=== PATIENT | male | born 1985 | race African-American/Black ===

== ENCOUNTER 2018-08-13 08:06 | Emergency (ER) | payer SELFPAY ==
--- NOTE | 2018-08-13 08:10 | EDM.PDOC ---
ED HPI GENERAL MEDICAL PROBLEM - General Stated Complaint: FLU Time Seen by Provider: 08/13/18 08:09 Source of Information: Reports: Patient - History of Present Illness INITIAL COMMENTS - FREE TEXT/NARRATIVE: HISTORY AND PHYSICAL: History of present illness: [Patient presents with nausea vomiting diarrhea some mild sore throat symptoms began last night Alert interactive no apparent distress however ill-appearing No vomiting while here in the emergency room he has complained of some abdominal pain however on exam it appears to be mild diffuse he rates 2 out of 10 nonradiating ] Review of systems: As per history of present illness and below otherwise all systems reviewed and negative. Past medical history: As per history of present illness and as reviewed below otherwise noncontributory. Surgical history: As per history of present illness and as reviewed below otherwise noncontributory. Social history: No reported history of drug or alcohol abuse. Family history: As per history of present illness and as reviewed below otherwise noncontributory. Physical exam: HEENT: Atraumatic, normocephalic, pupils reactive, negative for conjunctival pallor or scleral icterus, mucous membranes moist, throat clear, neck supple, nontender, trachea midline. Lungs: Clear to auscultation, breath sounds equal bilaterally, chest nontender. Heart: S1S2, regular, negative for clicks, rubs, or JVD. Abdomen: Soft, nondistended, nonfocal tenderness on deep palpation mild Negative for masses or hepatosplenomegaly. Negative for costovertebral tenderness. Pelvis: Stable nontender. Genitourinary: Deferred. Rectal: Deferred. Extremities: Atraumatic, negative for cords or calf pain. Neurovascular unremarkable. Neuro: Awake, alert, oriented. Cranial nerves II through XII unremarkable. Cerebellum unremarkable. Motor and sensory unremarkable throughout. Exam nonfocal. Diagnostics: [Strep/influenza cbC CMP UA CT abdomen pelvis with contrast Therapeutics: [Normal saline Toradol 30 mg IV Zofran 1 g Rocephin IV Amoxicillin Zofran ] Impression: Strep pharyngitis Gastroenteritis [Abdominal pain nausea vomiting diarrhea Secondaryto above ] Definitive disposition and diagnosis as appropriate pending reevaluation and review of above. Abdominal Pain Score (Numeric/FACES): 10 - Related Data Allergies Allergy/AdvReac Type Severity Reaction Status Date / Time No Known Allergies Allergy Verified 08/13/18 08:20 Home Meds: Home Meds . [No Known Home Meds] 08/13/18 [History] ED ROS GENERAL - Review of Systems Review Of Systems: See Below ED EXAM, GENERAL - Physical Exam Exam: See Below Course - Vital Signs Last Recorded V/S: Last Vital Signs Temp 96.5 F 08/13/18 08:16 Pulse 49 L 08/13/18 08:16 Resp 18 08/13/18 08:16 BP 126/53 L 08/13/18 08:16 Pulse Ox 98 08/13/18 08:16 - Orders/Labs/Meds Orders: Active Orders 24 hr Category Date Time Status DRUG SCREEN, URINE [URCHEM] Stat Lab 08/13/18 10:04 Received UA RFX URSZULA AND CULT IF INDIC [URIN] Stat Lab 08/13/18 10:04 Received Sodium Chloride 0.9% [Normal Saline] 1,000 ml Med 08/13/18 09:54 Active IV STAT Medication Orders Sodium Chloride (Normal Saline) 1,000 mls @ 999 mls/hr IV STAT ONE Stop: 08/13/18 10:54 Last Admin: 08/13/18 10:09 Dose: 999 mls/hr Labs: Laboratory Tests 08/13/18 08/13/18 Range/Units 08:47 08:47 WBC 10.09 (4.0-11.0) K/uL RBC 5.21 (4.50-5.90) M/uL Hgb 14.8 (13.0-17.0) g/dL Hct 44.0 (38.0-50.0) % MCV 84.5 (80.0-98.0) fL MCH 28.4 (27.0-32.0) pg MCHC 33.6 (31.0-37.0) g/dL RDW Std Deviation 43.8 (28.0-62.0) fl RDW Coeff of Aundrea 14 (11.0-15.0) % Plt Count 218 (150-400) K/uL MPV 10.80 (7.40-12.00) fL Neut % (Auto) 76.4 (48.0-80.0) % Lymph % (Auto) 16.4 (16.0-40.0) % Bertie % (Auto) 6.7 (0.0-15.0) % Eos % (Auto) 0.3 (0.0-7.0) % Baso % (Auto) 0.2 (0.0-1.5) % Neut # (Auto) 7.7 H (1.4-5.7) K/uL Lymph # (Auto) 1.7 (0.6-2.4) K/uL Bertie # (Auto) 0.7 (0.0-0.8) K/uL Eos # (Auto) 0.0 (0.0-0.7) K/uL Baso # (Auto) 0.0 (0.0-0.1) K/uL Nucleated RBC % 0.0 /100WBC Nucleated RBCs # 0 K/uL Sodium 142 (136-148) mmol/L Potassium 3.8 (3.5-5.1) mmol/L Chloride 105 (98-107) mmol/L Carbon Dioxide 28.6 (21.0-32.0) mmol/L BUN 16 (7.0-18.0) mg/dL Creatinine 0.9 (0.8-1.3) mg/dL Est Cr Clr Drug Dosing 104.69 mL/min Estimated GFR (MDRD) > 60.0 ml/min Glucose 126 H (74-106) mg/dL Calcium 9.4 (8.5-10.1) mg/dL Total Bilirubin 0.3 (0.2-1.0) mg/dL AST 26 (15-37) IU/L ALT 27 (14-63) IU/L Alkaline Phosphatase 96 (46-116) U/L Total Protein 7.3 (6.4-8.2) g/dL Albumin 3.9 (3.4-5.0) g/dL Globulin 3.4 (2.6-4.0) g/dL Albumin/Globulin Ratio 1.1 (0.9-1.6) Lipase 127 (73-393) U/L Meds: Medications Generic Name Dose Route Start Last Admin Trade Name Freq PRN Reason Stop Dose Admin Sodium Chloride 1,000 mls @ 999 mls/hr 08/13/18 09:54 08/13/18 10:09 Normal Saline IV 08/13/18 10:54 999 mls/hr STAT ONE Administration Discontinued Medications Generic Name Dose Route Start Last Admin Trade Name Freq PRN Reason Stop Dose Admin Sodium Chloride 1,000 mls @ 999 mls/hr 08/13/18 08:18 08/13/18 08:55 Normal Saline IV 08/13/18 09:18 999 mls/hr STAT ONE Administration Ceftriaxone Sodium/Dextrose 1 50 mls @ 100 mls/hr 08/13/18 09:54 08/13/18 10: 11 gm/ Premix IV 08/13/18 10:23 100 mls/hr ONETIME ONE Administration Ketorolac Tromethamine 30 mg 08/13/18 08:48 08/13/18 08:58 Toradol IVPUSH 08/13/18 08:49 30 mg ONETIME ONE Administration Ondansetron HCl 8 mg 08/13/18 08:18 08/13/18 08:55 Zofran IVPUSH 08/13/18 08:19 8 mg ONETIME ONE Administration Departure - Departure Time of Disposition: 10:28 Disposition: Home, Self-Care 01 Condition: Good Clinical Impression: Strep pharyngitis, Gastroenteritis - Discharge Information Referrals: PCP,None [Primary Care Provider] - Additional Instructions: The following information is given to patients seen in the emergency department who are being discharged to home. This information is to outline your options for follow-up care. We provide all patients seen in our emergency department with a follow-up referral. The need for follow-up, as well as the timing and circumstances, are variable depending upon the specifics of your emergency department visit. If you don't have a primary care physician on staff, we will provide you with a referral. We always advise you to contact your personal physician following an emergency department visit to inform them of the circumstance of the visit and for follow-up with them and/or the need for any referrals to a consulting specialist. The emergency department will also refer you to a specialist when appropriate. This referral assures that you have the opportunity for follow-up care with a specialist. All of these measure are taken in an effort to provide you with optimal care, which includes your follow-up. Under all circumstances we always encourage you to contact your private physician who remains a resource for coordinating your care. When calling for follow-up care, please make the office aware that this follow-up is from your recent emergency room visit. If for any reason you are refused follow-up, please contact the [facility] emergency department at and asked to speak to the emergency department charge nurse. - My Orders Last 24 Hours: My Active Orders 08/13/18 09:54 Sodium Chloride 0.9% [Normal Saline] 1,000 ml IV STAT 08/13/18 10:04 DRUG SCREEN, URINE [URCHEM] Stat UA RFX URSZULA AND CULT IF INDIC [URIN] Stat - Assessment/Plan Last 24 Hours: My Active Orders 08/13/18 09:54 Sodium Chloride 0.9% [Normal Saline] 1,000 ml IV STAT 08/13/18 10:04 DRUG SCREEN, URINE [URCHEM] Stat UA RFX URSZULA AND CULT IF INDIC [URIN] Stat
[2018-08-13] MEDS ORDERED: Sodium Chloride 0.9% 1,000 ML IV ONE ×2 (08:18→09:54)
[2018-08-13] MEDS ORDERED: Ondansetron 4 MG/2 ML SDV IVPUSH ONE (08:18)
[2018-08-13] MEDS ORDERED: Ketorolac 30 MG/ML SDV IVPUSH ONE (08:48)
[2018-08-13 09:34] LABS: CHLORIDE,CL 105 mmol/L (98-107); SODIUM,NA 142 mmol/L (136-148)
--- NOTE | 2018-08-13 09:36 | CR ---
EXAMINATION: Abdomen HISTORY: Pain COMPARISON: None TECHNIQUE: AP and upright views FINDINGS: There is no free air under the diaphragm. There is a nonobstructive bowel gas pattern. Likely a pelvic labral left along the left aspect of the pelvis. No organomegaly or otherwise no abnormal calcifications. Visualized osseous structures appear normal. IMPRESSION: No acute findings noted within the abdomen.
[2018-08-13] MEDS ORDERED: cefTRIAXone 1 GM in Premix Bag 1 BAG IV ONE (09:54)
[2018-08-13] MEDS ORDERED: Alum Hydrox/Mag Hydrox/Simeth 15 ML, Metoclopramide 5 MG, Lidocaine 2% 5 ML PO ONE ×3 (11:00)
[2018-08-13] MEDS ORDERED: Pantoprazole 40 MG Vial IVPUSH ONE (11:00)
== END 2018-08-13 13:12 | disposition home or self-care (01) ==
LOC: MW.ED 08:06
DX: K52.9 Noninfective gastroenteritis and colitis, unspecified (principal); J02.0 Streptococcal pharyngitis
CPT/HCPCS: 36415; 74019; 80053; 80305; 81003; 83690; 85025; 87804; 87880; 96361; 96365; 96375; 99284; A9270; C9113; J0696; J1885; J2405; J7040

== ENCOUNTER 2018-11-21 13:34 | Emergency (ER) | payer SELFPAY ==
[2018-11-21] MEDS ORDERED: Ondansetron 4 MG/2 ML SDV IVPUSH ONE (13:35)
[2018-11-21] MEDS ORDERED: Sodium Chloride 0.9% 1,000 ML IV ONE ×2 (13:35→15:03)
[2018-11-21] MEDS ORDERED: Ketorolac 30 MG/ML SDV IVPUSH ONE (13:35)
--- NOTE | 2018-11-21 13:41 | EDM.PDOC ---
ED HPI GENERAL MEDICAL PROBLEM - General Chief Complaint: Abdominal Pain Stated Complaint: STOMACH PAIN Time Seen by Provider: 11/21/18 13:35 Source of Information: Reports: Patient History Limitations: Reports: No Limitations - History of Present Illness INITIAL COMMENTS - FREE TEXT/NARRATIVE: HISTORY AND PHYSICAL: History of present illness: Patient is a 33-year-old male who presents to the emergency room with complaints of generalized abdominal pain, nausea, vomiting and diarrhea since Friday. He states he was at a friend's house on Friday and they had made a bunch of food that evening, shortly after eating started to develop symptoms. He states that the symptoms have been intermittent but have not fully subsided. Diarrhea resolved yesterday. He denies any testicular pain, erythema or soft tissue swelling. Patient denies any fever, chills, headache, change in vision, syncope or near syncope. Denies any chest pain, back pain, shortness of breath or cough. Denies any constipation or dysuria. Has not noted any blood in urine or stool. Denies any alcohol or drug abuse. Review of systems: As per history of present illness and below otherwise all systems reviewed and negative. Past medical history: As per history of present illness and as reviewed below otherwise noncontributory. Surgical history: As per history of present illness and as reviewed below otherwise noncontributory. Social history: See social history for further information Family history: As per history of present illness and as reviewed below otherwise noncontributory. Physical exam: General: Well-developed and well-nourished 33-year-old -[place] male. Alert and oriented. Nontoxic appearing and in no acute distress. HEENT: Atraumatic, normocephalic, pupils equal and reactive bilaterally, negative for conjunctival pallor or scleral icterus, mucous membranes moist, trachea midline. No drooling or trismus noted. No meningeal signs. No hot potato voice noted. Lungs: Clear to auscultation, breath sounds equal bilaterally, chest nontender. Heart: S1S2, regular rate and rhythm without overt murmur Abdomen: Soft, nondistended, nonspecific tenderness throughout all 4 quadrants. Negative for masses or hepatosplenomegaly. Negative for costovertebral tenderness. Pelvis: Stable nontender. Genitourinary: Deferred. Rectal: Deferred. Skin: Intact, warm, dry. No lesions or rashes noted. Extremities: Atraumatic, moves all extremities per self without difficulty or deficits, negative for cords or calf pain. Neurovascular unremarkable. Neuro: Awake, alert, oriented. Cranial nerves II through XII unremarkable. Cerebellum unremarkable. Motor and sensory unremarkable throughout. Exam nonfocal. Notes: Lab work is unremarkable. CT shows no acute findings. Vital signs remain stable. Patient did find improvement with the IV fluids and medications. Patient unable to give a stool sample during his ER visit. Supportive care measures were reviewed and discussed. Voices understanding and is agreeable to plan of care. Denies any further questions or concerns at this time. Diagnostics: CBC, CMP, lipase, UA, CT abdomen and pelvis, Therapeutics: IV fluid, Zofran, Toradol, Pepcid Prescription: Zofran Impression: Abdominal pain Gastroenteritis Plan: 1. Trimble diet over the next 24-48 hours. Advance diet as able. 2. Small frequent sips of fluids to prevent dehydration. You may use the Zofran as directed and as needed. 3. Follow-up with your primary care provider as we discussed. Return to the ED as needed and as discussed. Definitive disposition and diagnosis as appropriate pending reevaluation and review of above. abd Pain Score (Numeric/FACES): 10 - Related Data Allergies Allergy/AdvReac Type Severity Reaction Status Date / Time No Known Allergies Allergy Verified 11/21/18 13:43 Home Meds: Home Meds Ondansetron [Zofran ODT] 4 mg PO Q6H PRN #6 tab.dis 11/21/18 [Rx] Past Medical History - Past Health History Medical/Surgical History: Denies Medical/Surgical History Social & Family History - Family History Family Medical History: Noncontributory ED ROS GENERAL - Review of Systems Review Of Systems: ROS reveals no pertinent complaints other than HPI. ED EXAM, GI/ABD - Physical Exam Exam: See Below (See dictation) Course - Vital Signs Last Recorded V/S: Last Vital Signs Temp 97.3 F 11/21/18 13:44 Pulse 51 L 11/21/18 13:44 Resp 16 11/21/18 13:44 BP 174/124 H 11/21/18 13:44 Pulse Ox 100 11/21/18 13:44 - Orders/Labs/Meds Orders: Active Orders 24 hr Category Date Time Status Sodium Chloride 0.9% [Normal Saline] 1,000 ml Med 11/21/18 15:03 Active IV STAT Medication Orders Sodium Chloride (Normal Saline) 1,000 mls @ 125 mls/hr IV STAT ONE Stop: 11/21/18 23:02 Last Admin: 11/21/18 15:14 Dose: 125 mls/hr Labs: Laboratory Tests 11/21/18 11/21/18 11/21/18 Range/Units 13:35 14:35 14:35 WBC 9.18 (4.0-11.0) K/uL RBC 5.21 (4.50-5.90) M/uL Hgb 14.7 (13.0-17.0) g/dL Hct 44.2 (38.0-50.0) % MCV 84.8 (80.0-98.0) fL MCH 28.2 (27.0-32.0) pg MCHC 33.3 (31.0-37.0) g/dL RDW Std Deviation 43.3 (28.0-62.0) fl RDW Coeff of Aundrea 14 (11.0-15.0) % Plt Count 189 (150-400) K/uL MPV 10.90 (7.40-12.00) fL Neut % (Auto) 69.1 (48.0-80.0) % Lymph % (Auto) 23.5 (16.0-40.0) % Warrick % (Auto) 6.8 (0.0-15.0) % Eos % (Auto) 0.3 (0.0-7.0) % Baso % (Auto) 0.3 (0.0-1.5) % Neut # (Auto) 6.3 H (1.4-5.7) K/uL Lymph # (Auto) 2.2 (0.6-2.4) K/uL Warrick # (Auto) 0.6 (0.0-0.8) K/uL Eos # (Auto) 0.0 (0.0-0.7) K/uL Baso # (Auto) 0.0 (0.0-0.1) K/uL Nucleated RBC % 0.0 /100WBC Nucleated RBCs # 0 K/uL Sodium 141 (136-148) mmol/L Potassium 3.5 (3.5-5.1) mmol/L Chloride 106 (98-107) mmol/L Carbon Dioxide 24.5 (21.0-32.0) mmol/L BUN 19 H (7.0-18.0) mg/dL Creatinine 1.0 (0.8-1.3) mg/dL Est Cr Clr Drug Dosing 93.49 mL/min Estimated GFR (MDRD) > 60.0 ml/min Glucose 99 (74-106) mg/dL Calcium 9.0 (8.5-10.1) mg/dL Total Bilirubin 0.6 (0.2-1.0) mg/dL AST 25 (15-37) IU/L ALT 29 (14-63) IU/L Alkaline Phosphatase 71 (46-116) U/L Total Protein 6.4 (6.4-8.2) g/dL Albumin 3.7 (3.4-5.0) g/dL Globulin 2.7 (2.6-4.0) g/dL Albumin/Globulin Ratio 1.4 (0.9-1.6) Lipase 138 (73-393) U/L Urine Color YELLOW Urine Appearance CLEAR Urine pH 7.0 (5.0-8.0) Ur Specific [place] 1.015 (1.001-1.035) Urine Protein NEGATIVE (NEGATIVE) mg/dL Urine Glucose (UA) NEGATIVE (NEGATIVE) mg/dL Urine Ketones NEGATIVE (NEGATIVE) mg/dL Urine Occult Blood NEGATIVE (NEGATIVE) Urine Nitrite NEGATIVE (NEGATIVE) Urine Bilirubin NEGATIVE (NEGATIVE) Urine Urobilinogen 0.2 (<2.0) EU/dL Ur Leukocyte Esterase NEGATIVE (NEGATIVE) Meds: Medications Generic Name Dose Route Start Last Admin Trade Name Freq PRN Reason Stop Dose Admin Sodium Chloride 1,000 mls @ 125 mls/hr 11/21/18 15:03 11/21/18 15:14 Normal Saline IV 11/21/18 23:02 125 mls/hr STAT ONE Administration Discontinued Medications Generic Name Dose Route Start Last Admin Trade Name Freq PRN Reason Stop Dose Admin Famotidine 20 mg 11/21/18 15:03 11/21/18 15:14 Pepcid IVPUSH 11/21/18 15:04 20 mg ONETIME ONE Administration Sodium Chloride 1,000 mls @ 999 mls/hr 11/21/18 13:35 11/21/18 13:53 Normal Saline IV 11/21/18 14:35 999 mls/hr STAT ONE Administration Iopamidol 80 ml 11/21/18 16:30 11/21/18 16:31 Isovue Multipack-370 (76%) IVPUSH 11/21/18 16:31 80 ml ONETIME STA Administration Ketorolac Tromethamine 30 mg 11/21/18 13:35 11/21/18 13:54 Toradol IVPUSH 11/21/18 13:36 30 mg ONETIME ONE Administration Ondansetron HCl 4 mg 11/21/18 13:35 11/21/18 13:54 Zofran IVPUSH 11/21/18 13:36 4 mg ONETIME ONE Administration Departure - Departure Time of Disposition: 16:32 Disposition: Home, Self-Care 01 Clinical Impression: Gastroenteritis Abdominal pain Qualifiers: Abdominal location: generalized Qualified Code(s): R10.84 - Generalized abdominal pain - Discharge Information Prescriptions: Ondansetron [Zofran ODT] 4 mg PO Q6H PRN #6 tab.dis PRN Reason: Nausea Instructions: Viral Gastroenteritis, Adult, [id number], Abdominal Pain, Adult , [id number] Referrals: PCP,None [Primary Care Provider] - Forms: ED Department Discharge Additional Instructions: The following information is given to patients seen in the emergency department who are being discharged to home. This information is to outline your options for follow-up care. We provide all patients seen in our emergency department with a follow-up referral. The need for follow-up, as well as the timing and circumstances, are variable depending upon the specifics of your emergency department visit. If you don't have a primary care physician on staff, we will provide you with a referral. We always advise you to contact your personal physician following an emergency department visit to inform them of the circumstance of the visit and for follow-up with them and/or the need for any referrals to a consulting specialist. The emergency department will also refer you to a specialist when appropriate. This referral assures that you have the opportunity for follow-up care with a specialist. All of these measure are taken in an effort to provide you with optimal care, which includes your follow-up. Under all circumstances we always encourage you to contact your private physician who remains a resource for coordinating your care. When calling for follow-up care, please make the office aware that this follow-up is from your recent emergency room visit. If for any reason you are refused follow-up, please contact the [facility] Emergency Department at and asked to speak to the emergency department charge nurse. [facility] [address] [place] [address] [facility] [address] [place] [id number] 1. Trimble diet over the next 24-48 hours. Advance diet as able. 2. Small frequent sips of fluids to prevent dehydration. He may use the Zofran as directed and as needed. 3. Follow-up with your primary care provider as we discussed. Return to the ED as needed and as discussed. - My Orders Last 24 Hours: My Active Orders 11/21/18 15:03 Sodium Chloride 0.9% [Normal Saline] 1,000 ml IV STAT - Assessment/Plan Last 24 Hours: My Active Orders 11/21/18 15:03 Sodium Chloride 0.9% [Normal Saline] 1,000 ml IV STAT
[2018-11-21] MEDS ORDERED: Famotidine 20 MG/2 ML SDV IVPUSH ONE (15:03)
[2018-11-21 15:06] LABS: CHLORIDE,CL 106 mmol/L (98-107); SODIUM,NA 141 mmol/L (136-148)
[2018-11-21] MEDS ORDERED: Iopamidol 755 MG/ML 500 ML Multipack Bottle IVPUSH STA (16:30)
--- NOTE | 2018-11-21 16:32 | CT ---
INDICATION: Generalized abdominal pain. Nausea, vomiting and diarrhea. TECHNIQUE: Multiple axial images were obtained from the diaphragm to the symphysis pubis after administration of 80 mL of Isovue-370 intravenously. Sagittal and coronal re-formatted images were obtained. COMPARISON: None. FINDINGS: The visualized portion of the lung bases are clear. There is no focal liver lesion. The spleen, pancreas, gallbladder and adrenal glands are unremarkable. There is no mass or hydronephrosis seen in the kidneys. There is no evidence of a bowel obstruction. The abdominal aorta normal in caliber. There is no adenopathy seen. IMPRESSION: No acute abnormality seen on CT scan abdomen and pelvis with contrast. Dictated by Myke Edmond MD @ 11/21/2018 4:30:13 PM Please note that all CT scans at this facility use dose modulation, iterative reconstruction, and/or weight-based dosing when appropriate to reduce radiation dose to as low as reasonably achievable. Dictated by: Myke Edmond MD @ 11/21/2018 16:30:27 (Electronically Signed)
== END 2018-11-21 16:48 | disposition home or self-care (01) ==
LOC: MW.ED 13:34
DX: K52.9 Noninfective gastroenteritis and colitis, unspecified (principal)
CPT/HCPCS: 36415; 74177; 80053; 81003; 83690; 85025; 96361; 96374; 96375; 99284; J1885; J2405; J3490; J7040; Q9967

== ENCOUNTER 2020-02-22 01:42 | Emergency (ER) | payer SELFPAY ==
--- NOTE | 2020-02-22 01:53 | EDM.PDOC ---
ED HPI GENERAL MEDICAL PROBLEM - General Chief Complaint: General Stated Complaint: MEDICAL CLEARANCE Time Seen by Provider: 02/22/20 01:47 - History of Present Illness INITIAL COMMENTS - FREE TEXT/NARRATIVE: 34-year-old male presents in police custody for medical clearance. The patient states that he does not have anything wrong with him he just refused to answer their questions other to come here. He denies any medical problems or any medical complaint at this time. - Related Data Allergies Allergy/AdvReac Type Severity Reaction Status Date / Time No Known Allergies Allergy Verified 02/22/20 01:52 Home Meds: Home Meds . [No Known Home Meds] 02/22/20 [History] Past Medical History - Past Health History Medical/Surgical History: Denies Medical/Surgical History - Infectious Disease History Infectious Disease History: Reports: Chicken Pox - Past Surgical History Other Respiratory Surgeries/Procedures: spontaneous pneumothorax Social & Family History - Family History Family Medical History: Noncontributory ED ROS GENERAL - Review of Systems Review Of Systems: See Below Free Text/Narrative/Comment: He denies any active medical symptom ED EXAM, GENERAL - Physical Exam Exam: See Below Free Text/Narrative:: General Appearance: No acute distress, appears comfortable HEENT: Normocephalic/atraumatic, sclera anicteric, mucous membranes moist Neck: Normal range of motion Chest and Lungs: Bilateral breath sounds, clear to auscultation Cardiovascular: Regular rate and rhythm, no murmur Back: Normal Musculoskeletal: No edema or tenderness Neurologic: Awake, alert, no obvious deficits, moving all extremities Psychiatric: Appropriate, cooperative Course - Vital Signs Last Recorded V/S: Last Vital Signs Temp 97.2 F 02/22/20 01:50 Pulse 79 02/22/20 01:50 Resp 18 02/22/20 01:50 BP 117/80 02/22/20 01:50 Pulse Ox 100 02/22/20 01:50 Departure - Departure Time of Disposition: 01:52 Disposition: Home, Self-Care 01 Condition: Good Clinical Impression: Medical clearance for incarceration - Discharge Information *PRESCRIPTION DRUG MONITORING PROGRAM REVIEWED*: Not Applicable *COPY OF PRESCRIPTION DRUG MONITORING REPORT IN PATIENT BRITTANY: Not Applicable Referrals: PCP,None [Primary Care Provider] - Forms: ED Department Discharge Additional Instructions: The following information is given to patients seen in the emergency department who are being discharged to home. This information is to outline your options for follow-up care. We provide all patients seen in our emergency department with a follow-up referral. The need for follow-up, as well as the timing and circumstances, are variable depending upon the specifics of your emergency department visit. If you don't have a primary care physician on staff, we will provide you with a referral. We always advise you to contact your personal physician following an emergency department visit to inform them of the circumstance of the visit and for follow-up with them and/or the need for any referrals to a consulting specialist. The emergency department will also refer you to a specialist when appropriate. This referral assures that you have the opportunity for follow-up care with a specialist. All of these measure are taken in an effort to provide you with optimal care, which includes your follow-up. Under all circumstances we always encourage you to contact your private physician who remains a resource for coordinating your care. When calling for follow-up care, please make the office aware that this follow-up is from your recent emergency room visit. If for any reason you are refused follow-up, please contact the [facility] Emergency Department at and asked to speak to the emergency department charge nurse. Sepsis Event Note (ED) - Focused Exam Vital Signs: Vital Signs Temp Pulse Resp BP Pulse Ox 02/22/20 01:50 97.2 F 79 18 117/80 100 - Assessment/Plan Assessment:: 34-year-old male who denies any active problem or issue denies any complaint presents his medical clearance no findings of acute medical process by history or exam. Patient cleared for incarceration.
== END 2020-02-22 02:15 ==
LOC: MW.ED 01:42
DX: Z02.89 Encounter for other administrative examinations (principal)
CPT/HCPCS: 99282; 99283

== ENCOUNTER 2022-01-21 02:44 | Emergency (ER) | payer SELFPAY ==
[2022-01-21] MEDS ORDERED: Ibuprofen 600 MG Tab PO ONE (03:38)
[2022-01-21] MEDS ORDERED: traMADol 50 MG Tab PO ONE (03:38)
== END 2022-01-21 05:22 | disposition home or self-care (01) ==
LOC: MW.ED 02:44
DX: S42.141A Displaced fracture of glenoid cavity of scapula, right shoulder, initial encounter for closed fracture (principal); W18.30XA Fall on same level, unspecified, initial encounter; Y93.67 Activity, basketball
CPT/HCPCS: 73030; 73200; 99284; A9270

== ENCOUNTER 2022-04-17 13:42 | Emergency (ER) | payer BC, MEDICAID ==
[2022-04-17] MEDS ORDERED: Lidocaine 1% PF 2 ML SDV INJECT ONE (14:11)
== END 2022-04-17 14:48 | disposition home or self-care (01) ==
LOC: MW.ED 13:42
DX: L03.313 Cellulitis of chest wall (principal); L02.213 Cutaneous abscess of chest wall; Z79.899 Other long term (current) drug therapy
CPT/HCPCS: 10060; 99282-25

== ENCOUNTER 2022-04-19 12:29 | Emergency (ER) | payer MEDICAID | END 2022-04-19 15:35 | disposition home or self-care (01) | LOC: MW.ED 12:29 | DX: L02.411 Cutaneous abscess of right axilla (principal) | CPT/HCPCS: 99282 ==

== ENCOUNTER 2022-07-17 08:06 | Emergency (ER) | payer MEDICAID ==
[2022-07-17] MEDS ORDERED: Sodium Chloride 0.9% 20 ML SDV IV PRN (08:20)
[2022-07-17] MEDS ORDERED: Sodium Chloride 0.9% 10 ML Syringe FLUSH PRN (08:20)
[2022-07-17] MEDS ORDERED: Sodium Chloride 0.9% 2.5 ML Syringe FLUSH PRN (08:20)
[2022-07-17] MEDS ORDERED: Ondansetron 4 MG/2 ML SDV IVPUSH ONE ×2 (08:21→10:59)
[2022-07-17] MEDS ORDERED: Sodium Chloride 0.9% 1,000 ML IV ONE (08:21)
[2022-07-17 09:06] LABS: CARBON DIOXIDE,CO2 29.4 mmol/L (21.0-32.0); POTASSIUM,K 2.9 mmol/L (3.5-5.1)
[2022-07-17 09:41] LABS: CORONAVIRUS COVID-19 NAA NEGATIVE (NEGATIVE); INFLUENZA A NAA NEGATIVE (NEGATIVE); INFLUENZA B NAA NEGATIVE (NEGATIVE); RESPIRATORY SYNCYTIAL VIR NAA NEGATIVE (NEGATIVE)
[2022-07-17] MEDS ORDERED: Morphine 4 MG/ML Syringe IVPUSH ONE (11:00)
[2022-07-17] MEDS ORDERED: Iopamidol 755 MG/ML 500 ML Multipack Bottle IVPUSH STA (11:19)
[2022-07-17] MEDS ORDERED: Potassium Bicarbonate 25 MEQ Tab.EFF PO STA (12:12)
[2022-07-17] MEDS ORDERED: Sodium Chloride 0.9% 250 ML IV ONE (12:30)
[2022-07-17] MEDS ORDERED: Potassium Chloride 20 MEQ in Premix Bag 1 BAG IV ONE (12:30)
[2022-07-17] MEDS ORDERED: NS + KCl 20mEq/L 1,000 ML IV SCH (13:00)
[2022-07-17] MEDS ORDERED: Potassium Chloride 20 MEQ Tab.ER PO ONE (13:22)
[2022-07-17] MEDS ORDERED: Metoclopramide 10 MG/2 ML SDV IVPUSH ONE (14:13)
== END 2022-07-17 16:33 | disposition home or self-care (01) ==
LOC: MW.ED 08:06
DX: A08.4 Viral intestinal infection, unspecified (principal); Z20.822 Contact with and (suspected) exposure to COVID-19
CPT/HCPCS: 0241U; 36415; 74177; 80053; 83690; 85025; 93005; 96361; 96365; 96366; 96375; 96376; 99284; A9270; J2270; J2405; J2765; J3480; J3490; J7030; J7050; Q9967

== ENCOUNTER 2023-02-24 10:07 | Emergency (ER) | payer SELFPAY ==
[2023-02-24] MEDS ORDERED: Lidocaine 1% 5 ML VIAL INJECT ONE (10:33)
== END 2023-02-24 11:13 | disposition home or self-care (01) ==
LOC: MW.ED 10:07
DX: L02.413 Cutaneous abscess of right upper limb (principal)
CPT/HCPCS: 10060; 99282; 99283; J3490

== ENCOUNTER 2023-12-18 10:41 | Emergency (ER) | payer SELFPAY ==
[2023-12-18] MEDS: Sodium Chloride 0.9% 1,000 ML IV ONE (11:17)
[2023-12-18] MEDS: Ondansetron 4 MG/2 ML SDV IVPUSH ONE (11:17)
[2023-12-18 11:22] LABS: BASOPHILS ABSOLUTE AUTO 0.03 K/uL (0.00-0.20); BASOPHILS PERCENT AUTO 0.3 % (0.0-1.0); EOSINOPHILS ABSOLUTE AUTO 0.01 K/uL (0.00-0.45); EOSINOPHILS PERCENT AUTO 0.1 % (0.0-6.0); HEMATOCRIT 45.6 % (42.0-52.0); HEMOGLOBIN 15.3 g/dL (14.0-18.0); IMMATURE GRAN ABSOLUTE AUTO 0.03 K/uL (0.00-0.05); IMMATURE GRAN PERCENT AUTO 0.3 % (0.0-0.4); LYMPHOCYTES ABSOLUTE AUTO 1.86 K/uL (1.00-4.80); LYMPHOCYTES PERCENT AUTO 21.5 % (24.0-44.0); MEAN CORPUSCULAR HEMOGLOBIN 27.3 pg (28.0-32.0); MEAN CORPUSCULAR HGB CONC 33.6 g/dL (32.0-36.0); MEAN CORPUSCULAR VOLUME 81.4 fL (83.0-99.0); MEAN PLATELET VOLUME 11.1 fL (9.4-12.4); MONOCYTES ABSOLUTE AUTO 0.63 K/uL (0.00-0.80); MONOCYTES PERCENT AUTO 7.3 % (0.0-8.0); NEUTROPHILS ABSOLUTE AUTO 6.08 K/uL (1.80-7.70); NEUTROPHILS PERCENT AUTO 70.5 % (41.0-71.0); PLATELET COUNT,PLT 220 K/uL (150-400); WHITE BLOOD CELL COUNT,WBC 8.64 K/uL (3.9-11.3)
[2023-12-18 11:49] LABS: A/G RATIO 1.3 (0.9-1.6); ALANINE AMINOTRANSFERASE,ALT 21 IU/L (14-63); ALBUMIN 4.2 g/dL (3.4-5.0); ALKALINE PHOSPHATASE 89 U/L (46-116); ASPARTATE AMNIOTRANSFERASE,AST 16 IU/L (15-37); BILIRUBIN TOTAL 0.8 mg/dL (0.2-1.0); BLOOD UREA NITROGEN,BUN 13 mg/dL (7.0-18.0); CALCIUM 9.8 mg/dL (8.5-10.1); CARBON DIOXIDE,CO2 26.3 mmol/L (21.0-32.0); CHLORIDE,CL 103 mmol/L (98-107); CREATININE 1.2 mg/dL (0.8-1.3); GLUCOSE RANDOM 119 mg/dL (74-106); LIPASE 27 U/L (16-77); POTASSIUM,K 3.2 mmol/L (3.5-5.1); PROTEIN TOTAL,TP 7.4 g/dL (6.4-8.2); SODIUM,NA 143 mmol/L (136-148)
[2023-12-18 11:52] LABS: ESTIMATED GFR 79 mL/min (>60)
[2023-12-18] MEDS: Famotidine 20 MG/2 ML SDV IVPUSH ONE (12:26)
[2023-12-18] MEDS: Alum Hydro/Mag Hydro/Simeth XS 15 ML, Metoclopramide 5 MG, Lidocaine 2% 5 ML PO ONE (12:26)
== END 2023-12-18 13:15 | disposition home or self-care (01) ==
LOC: MW.ED 10:41
DX: R11.2 Nausea with vomiting, unspecified (principal); Z75.8 Other problems related to medical facilities and other health care
CPT/HCPCS: 36415; 80053; 83690; 85025; 96361; 96374; 96375; 99284; A9270; J2405; J3490; J7030

== ENCOUNTER 2024-11-28 09:52 | Emergency (ER) | payer BC ==
[2024-11-28] MEDS: Sodium Chloride 0.9% 1,000 ML IV ONE (10:17)
[2024-11-28] MEDS: Ketorolac 30 MG/ML SDV IVPUSH ONE (10:17)
[2024-11-28] MEDS: Ondansetron 4 MG/2 ML SDV IVPUSH ONE (10:17)
[2024-11-28 10:22] LABS: BASOPHILS ABSOLUTE AUTO 0.04 K/uL (0.00-0.20); BASOPHILS PERCENT AUTO 0.4 % (0.0-1.0); EOSINOPHILS ABSOLUTE AUTO 0.05 K/uL (0.00-0.45); EOSINOPHILS PERCENT AUTO 0.5 % (0.0-6.0); HEMATOCRIT 46.6 % (42.0-52.0); HEMOGLOBIN 15.4 g/dL (14.0-18.0); IMMATURE GRAN ABSOLUTE AUTO 0.03 K/uL (0.00-0.05); IMMATURE GRAN PERCENT AUTO 0.3 % (0.0-0.4); LYMPHOCYTES PERCENT AUTO 33.3 % (24.0-44.0); MEAN CORPUSCULAR HEMOGLOBIN 27.6 pg (28.0-32.0); MEAN CORPUSCULAR VOLUME 83.5 fL (83.0-99.0); MEAN PLATELET VOLUME 10.5 fL (9.4-12.4); MONOCYTES ABSOLUTE AUTO 0.63 K/uL (0.00-0.80); MONOCYTES PERCENT AUTO 6.8 % (0.0-8.0); NEUTROPHILS ABSOLUTE AUTO 5.46 K/uL (1.80-7.70); NEUTROPHILS PERCENT AUTO 58.7 % (41.0-71.0); PLATELET COUNT,PLT 216 K/uL (150-400); RED BLOOD CELL COUNT 5.58 M/uL (4.52-5.90); WHITE BLOOD CELL COUNT,WBC 9.31 K/uL (3.9-11.3)
[2024-11-28] MEDS: Dicyclomine 10 MG Cap PO ONE (10:34)
[2024-11-28] MEDS: Promethazine 25 MG/ML SDV IM ONE (10:41)
[2024-11-28 10:52] LABS: A/G RATIO 1.3 (0.9-1.6); ALBUMIN 3.9 g/dL (3.4-5.0); BILIRUBIN TOTAL 0.3 mg/dL (0.2-1.0); CALCIUM 9.4 mg/dL (8.5-10.1); CREATININE 1.1 mg/dL (0.8-1.3); EST CRCL DRUG DOSING (CG) 79.04 mL/min; POTASSIUM,K 3.7 mmol/L (3.5-5.1); PROTEIN TOTAL,TP 6.9 g/dL (6.4-8.2)
[2024-11-28 10:58] LABS: MAGNESIUM 1.8 mg/dL (1.8-2.4)
== END 2024-11-28 11:48 | disposition home or self-care (01) ==
LOC: MW.ED 09:52
DX: K52.9 Noninfective gastroenteritis and colitis, unspecified (principal); Z75.3 Unavailability and inaccessibility of health-care facilities; Z79.899 Other long term (current) drug therapy
CPT/HCPCS: 36415; 80053; 83690; 83735; 85025; 96361; 96372; 96374; 96375; 99284; A9270; J1885; J2405; J2550; J7030; 99283